=== PATIENT | female | born 1995 | race Caucasian/White ===

== ENCOUNTER 2016-08-11 13:33 | Emergency (ER) | payer BC ==
[2016-08-11] MEDS ORDERED: Sodium Chloride 0.9% 1,000 ML IV ONE (14:25)
[2016-08-11] MEDS ORDERED: Sodium Chloride 0.9% 10 ML Syringe FLUSH PRN (14:25)
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
[2016-08-11] MEDS ORDERED: Ondansetron 4 MG/2 ML SDV IVPUSH ONE (15:10)
[2016-08-11] MEDS ORDERED: Ketorolac 30 MG/ML SDV IVPUSH ONE (15:45)
[2016-08-11 16:57] VITALS: BP 120/82
== END 2016-08-11 16:45 | disposition home or self-care (01) ==
LOC: JD.ED 13:33
DX: J10.1 Influenza due to other identified influenza virus with other respiratory manifestations (principal)
CPT/HCPCS: 36415; 80053; 81001; 85025; 86140; 86308; 87081; 87430; 87804; 96361; 96374; 96375; 99284; J1885; J2405; J7040; J7050

== ENCOUNTER 2017-03-30 09:59 | Emergency (ER) | payer BC ==
[2017-03-30 10:12] VITALS: BP 124/77
[2017-03-30] MEDS ORDERED: Sodium Chloride 0.9% 10 ML Syringe FLUSH PRN (10:25)
[2017-03-30] MEDS ORDERED: Ondansetron 4 MG/2 ML SDV IVPUSH ONE (10:25)
[2017-03-30] MEDS ORDERED: Levofloxacin/Dextrose 5%-Water 500 MG in Premix Bag 1 BAG IV ONE (10:26)
[2017-03-30] MEDS ORDERED: HYDROmorphone 0.5 MG/0.5 ML Syringe IVPUSH ONE ×2 (10:26→11:36)
[2017-03-30] MEDS ORDERED: Sodium Chloride 0.9% 1,000 ML IV SCH (10:30)
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
--- NOTE | 2017-03-30 11:38 | CT ---
CT abdomen and pelvis Technique: Multiple axial sections were obtained from above the dome of the diaphragm inferiorly through the pubic symphysis. Intravenous and oral contrast not utilized. Study has been performed as a ureteral stone protocol. Findings: Kidneys show no abnormal calcifications. No hydronephrosis is seen. No abnormal calcifications are seen along the course of the ureters. Visualized lung bases shows nothing acute. Noncontrast appearance of the liver and spleen appear within normal limits. Adrenal glands show no nodule. Pancreas shows no discrete abnormality. Gallbladder shows no calcified gallstones. Aorta shows no aneurysmal dilatation. No retroperitoneal adenopathy is seen. Appendix is seen which appears normal. No pelvic mass or adenopathy is seen. No free fluid or inflammatory change is seen. Mild increased stool is seen throughout the colon. Bone window settings were reviewed which appears within normal limits for the patient's age. Impression: 1. Mild increased stool throughout the colon. 2. No renal calculi, ureteral dilatation or ureteral stone is seen. 3. Other portions of the noncontrast CT study of the abdomen and pelvis performed as a ureteral stone protocol appears within normal limits. Diagnostic code #2
== END 2017-03-30 12:35 | disposition home or self-care (01) ==
LOC: JD.ED 09:59
DX: N39.0 Urinary tract infection, site not specified (principal); F17.210 Nicotine dependence, cigarettes, uncomplicated
CPT/HCPCS: 36415; 74176; 80053; 81001; 83690; 84703; 85025; 87086; 96361; 96365; 96375; 96376; 99284; J1170; J1956; J2405; J7040; J7050

== ENCOUNTER 2018-01-16 19:52 | Emergency (ER) | payer BC ==
[2018-01-16 20:06] VITALS: BP 126/77
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
[2018-01-16] MEDS ORDERED: Sodium Chloride 0.9% 10 ML Syringe FLUSH PRN (21:49)
--- NOTE | 2018-01-17 06:41 | CR ---
Chest: Two views of the chest were obtained. Comparison: No prior chest imaging. Findings: Heart size and mediastinum are normal. Lungs are clear. Bony structures are unremarkable for the patient's age. Impression: 1. Nothing acute is seen on two-view chest x-ray. Diagnostic code #1
--- NOTE | 2018-01-17 06:51 | CR ---
Abdomen: Supine view of the abdomen was obtained. No prior abdominal x-ray. Prior noncontrast CT abdomen and pelvis exam of 03/30/17 is available. Bowel gas pattern appears normal. No abnormal calcifications or soft tissue abnormality is seen. Bony structures are unremarkable. Impression: 1. Unremarkable supine abdominal x-ray. Diagnostic code #1
--- NOTE | 2018-01-17 06:51 | CT ---
CT chest Technique: Multiple axial sections through the chest were obtained. Intravenous contrast was utilized. Study has been performed as a pulmonary angiogram protocol. Findings: Pulmonary arteries are well-opacified. No filling defects are seen to indicate pulmonary embolism. Mediastinum and hilar regions show no adenopathy or mass. No pericardial thickening is seen. Small portion of the visualized upper abdominal structures are within normal limits. Lungs are clear without acute parenchymal change. Bone window settings were reviewed which show no acute osseous finding. Impression: 1. No findings of pulmonary embolism. 2. Other portions of the CT exam of the chest appear within normal limits. Diagnostic code #1 I agree with preliminary report issued by [employer] ([employer] preliminary report dictated on 01/17/18, 12:25 AM Central Time)
== END 2018-01-16 23:49 | disposition home or self-care (01) ==
LOC: JD.ED 19:52
DX: K59.00 Constipation, unspecified (principal); R11.2 Nausea with vomiting, unspecified; F17.210 Nicotine dependence, cigarettes, uncomplicated
CPT/HCPCS: 36415; 71046; 71275; 74018; 80053; 81001; 83690; 85025; 85379; 86140; 99284; J7050

== ENCOUNTER 2019-08-20 21:17 | Emergency (ER) | payer BC ==
[2019-08-20 21:30] VITALS: BP 135/89; PULSE 109
[2019-08-20] MEDS ORDERED: Sodium Chloride 0.9% 10 ML Syringe FLUSH PRN (21:42)
[2019-08-20] MEDS ORDERED: Ketorolac 30 MG/ML SDV IVPUSH ONE (21:43)
[2019-08-20] MEDS ORDERED: Sodium Chloride 0.9% 1,000 ML IV SCH (21:45)
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
[2019-08-20] MEDS ORDERED: Ondansetron 4 MG/2 ML SDV IVPUSH ONE (22:15)
[2019-08-20] MEDS ORDERED: Levofloxacin/Dextrose 5%-Water 750 MG in Premix Bag 1 BAG IV ONE (22:24)
[2019-08-20] MEDS ORDERED: HYDROmorphone 0.5 MG/0.5 ML Syringe IVPUSH ONE (22:41)
[2019-08-20] MEDS ORDERED: Acetaminophen/HYDROcodone 325-5 MG Tab PO ONE (23:03)
--- NOTE | 2019-08-21 06:47 | CT ---
CT abdomen and pelvis Comparison: Previous CT abdomen and pelvis study of 03/30/17 performed as a renal stone protocol. Technique: Multiple axial sections were obtained from above the dome of the diaphragm inferiorly through the pubic symphysis. Intravenous contrast was utilized. No oral contrast has been given. Delayed images were also obtained through the abdomen and pelvis. Findings: Visualized lung bases show nothing acute. Liver contains no focal parenchymal abnormality. Spleen appears within normal limits. Adrenal glands show no nodule. Pancreas shows no focal parenchymal abnormality. Kidneys show symmetric contrast enhancement without hydronephrosis or mass. Aorta shows no aneurysm. No retroperitoneal adenopathy is appreciated. No mesenteric abnormalities are identified. Appendix is seen which is normal in size. No pelvic mass or adenopathy is appreciated. Pelvic varicosities are present. No free fluid or inflammatory change is appreciated. Bone window settings were reviewed which appear within normal limits for the patient's age. Impression: 1. Pelvic varicosities. 2. Nothing acute is appreciated on CT study of the abdomen and pelvis. Diagnostic code #2 This report was dictated in [place] Standard Time I agree with preliminary report from [facility], finalized on 08/21/19, 12:14 AM Central Time
== END 2019-08-21 00:10 | disposition home or self-care (01) ==
LOC: JD.ED 21:17
DX: N12 Tubulo-interstitial nephritis, not specified as acute or chronic (principal); F17.210 Nicotine dependence, cigarettes, uncomplicated; Z88.5 Allergy status to narcotic agent
CPT/HCPCS: 36415; 74177; 80053; 81001; 85025; 86140; 87086; 96361; 96365; 96375; 99284; A9270; J1170; J1885; J1956; J2405; J7030; 99283

== ENCOUNTER 2021-08-03 20:48 | Inpatient (IN) | payer MEDICAID ==
[2021-08-03] MEDS ORDERED: Lidocaine 1% 50 ML MDV INJECT ONE (21:48)
[2021-08-03] MEDS ORDERED: Nalbuphine 10 MG/1 ML Vial IVPUSH PRN (21:48)
[2021-08-03] MEDS ORDERED: Ondansetron 4 MG/2 ML SDV IVPUSH PRN (21:48)
[2021-08-03] MEDS ORDERED: Sodium Chloride 0.9% 10 ML Syringe FLUSH PRN (21:48)
[2021-08-03] MEDS ORDERED: Acetaminophen 325 MG Tab PO PRN (21:48)
[2021-08-03] MEDS ORDERED: Oxytocin/Lactated Ringers 10 UNIT/1,000 ML BAG IV SCH ×2 (22:00)
[2021-08-03] MEDS: Lactated Ringers 1,000 ML IV SCH ×2 (22:30→23:46)
[2021-08-03] MEDS ORDERED: Bupivacaine/fentaNYL/NS 100 ML Bag EPIDUR PRN (23:00)
[2021-08-03] MEDS ORDERED: ePHEDrine 50 MG/ML SDV IVPUSH PRN (23:00)
[2021-08-03] MEDS ORDERED: fentaNYL 100 MCG/2 ML SDV EPIDUR PRN (23:00)
[2021-08-04] MEDS ORDERED: Bupivacaine 0.25% 10 ML SDV ONE
[2021-08-04] MEDS: Lactated Ringers 1,000 ML IV SCH (03:47)
[2021-08-04] MEDS ORDERED: Benzocaine/Menthol 20%-0.5% Spray 78 GM Cannister TOP PRN (08:47)
[2021-08-04] MEDS ORDERED: Oxytocin/Lactated Ringers 10 UNIT/1,000 ML BAG IV SCH (08:47)
[2021-08-04] MEDS ORDERED: Witch Hazel Medicated Pads 40/Jar TOP PRN (08:47)
[2021-08-04] MEDS ORDERED: Magnesium Hydroxide 400 MG/5 ML Susp 30 ML Cup PO PRN (08:47)
[2021-08-04] MEDS ORDERED: Hydrocortisone Acetate 25 MG Supp RECTAL PRN (08:47)
[2021-08-04] MEDS ORDERED: Acetaminophen 325 MG Tab PO PRN (08:47)
[2021-08-04] MEDS: Ferrous Sulfate 324 MG Tab.EC PO SCH (08:58)
[2021-08-04] MEDS: Ibuprofen 600 MG Tab PO PRN ×2 (08:58→18:00)
[2021-08-04] MEDS: Docusate Sodium 100 MG Cap PO PRN (08:58)
[2021-08-04] MEDS: Prenatal Multivitamin with Calcium/Folic Acid/Iron Tab PO SCH (08:58)
[2021-08-04] MEDS ORDERED: Sodium Chloride 0.9% 10 ML Syringe FLUSH SCH (09:00)
[2021-08-05] MEDS: Docusate Sodium 100 MG Cap PO PRN (08:05)
[2021-08-05] MEDS: Ibuprofen 600 MG Tab PO PRN ×3 (08:05→22:28)
[2021-08-05] MEDS: Ferrous Sulfate 324 MG Tab.EC PO SCH (08:05)
[2021-08-05] MEDS: Prenatal Multivitamin with Calcium/Folic Acid/Iron Tab PO SCH (08:05)
[2021-08-05] MEDS ORDERED: Buprenorphine/Naloxone 8-2 MG Tab.SL SL SCH (09:00)
[2021-08-06] MEDS: Ibuprofen 600 MG Tab PO PRN (06:35)
[2021-08-06 11:12] VITALS: BP 108/60; PULSE 99
== END 2021-08-06 10:40 | disposition home or self-care (01) | DRG 807 ==
LOC: JD.OBCHECK 20:48 → JD.OB 20:57 → JD.OBCHECK 21:47 → JD.OB 21:48 → OBSVTOIN 08-04 06:55 → JD.OB 08-04 06:56
PROVIDERS: ADMIT Obstetrics & Gynecology; ATTEND Obstetrics & Gynecology
PROC: 10E0XZZ Delivery of Products of Conception, External Approach (ICD-10-PCS; principal; 2021-08-04)
PROC: 10907ZC Drainage of Amniotic Fluid, Therapeutic from Products of Conception, Via Natural or Artificial Opening (ICD-10-PCS; 2021-08-04)
PROC: 0HQ9XZZ Repair Perineum Skin, External Approach (ICD-10-PCS; 2021-08-04)
DX: O99.334 Smoking (tobacco) complicating childbirth (principal); Z37.0 Single live birth; F17.210 Nicotine dependence, cigarettes, uncomplicated; O70.0 First degree perineal laceration during delivery; Z3A.38 38 weeks gestation of pregnancy
CPT/HCPCS: 01967; 36415; 51702; 59025; 59409; 80306; 85025; 86592; A9270-GY; J2590; J3010; J3490; J7120

== ENCOUNTER 2021-12-24 10:31 | Emergency (ER) | payer MEDICAID ==
[2021-12-24 10:41] VITALS: BP 113/69; PULSE 89
[2021-12-24] MEDS ORDERED: Sodium Chloride 0.9% 1,000 ML IV SCH (11:15)
[2021-12-24] MEDS ORDERED: Iopamidol 755 Mg/ML 100 ML Bottle IVPUSH ONE (12:08)
[2021-12-24] MEDS ORDERED: Sodium Chloride 0.9% 10 ML Syringe FLUSH ONE (12:08)
[2021-12-24] MEDS ORDERED: Sodium Chloride 0.9% 100 ML IV SCH (12:15)
[2021-12-24 12:31] LABS: ESTIMATED GFR 127 mL/min (>60)
[2021-12-24] MEDS ORDERED: Ketorolac 30 MG/ML SDV IVPUSH SCH (13:15)
[2021-12-24] MEDS ORDERED: HYDROmorphone 1 MG/ML Syringe IVPUSH ONE (13:36)
[2021-12-24] MEDS ORDERED: Metoclopramide 10 MG/2 ML SDV IVPUSH ONE (13:36)
[2021-12-24] MEDS ORDERED: cefTRIAXone 2 GM in Sodium Chloride 0.9% 100 ML IV ONE (13:37)
== END 2021-12-24 15:35 | disposition home or self-care (01) ==
LOC: JD.ED 10:31
DX: L03.113 Cellulitis of right upper limb (principal); L02.413 Cutaneous abscess of right upper limb; K21.9 Gastro-esophageal reflux disease without esophagitis; Z72.0 Tobacco use; Z88.5 Allergy status to narcotic agent; Z88.8 Allergy status to other drugs, medicaments and biological substances
CPT/HCPCS: 36415; 71275; 80053; 83880; 84484; 85025; 85379; 85610; 85730; 86140; 93971; 96365; 96375; 99284; J0696; J1170; J1885; J2765; J3490; J7030; Q9967

== ENCOUNTER 2021-12-24 19:26 | Emergency (ER) | payer MEDICAID | END 2021-12-24 20:21 | disposition left against medical advice (07) | LOC: JD.ED 19:26 | DX: Z53.21 Procedure and treatment not carried out due to patient leaving prior to being seen by health care provider (principal) ==

== ENCOUNTER 2021-12-27 15:00 | Emergency (ER) | payer MEDICAID | END 2021-12-27 15:56 | disposition left against medical advice (07) | LOC: JD.ED 15:00 | DX: Z53.21 Procedure and treatment not carried out due to patient leaving prior to being seen by health care provider (principal) ==

== ENCOUNTER 2024-05-10 19:25 | Emergency (ER) | payer BC, MEDICAID ==
[2024-05-10] MEDS ORDERED: Sodium Chloride 0.9% 1,000 ML IV SCH (20:00)
[2024-05-10] MEDS: Ketorolac 30 MG/ML SDV IVPUSH ONE (20:35)
[2024-05-10] MEDS: Metoclopramide 10 MG/2 ML SDV IVPUSH ONE (20:35)
[2024-05-10] MEDS: diphenhydrAMINE 50 MG/ML SDV IVPUSH ONE (20:35)
[2024-05-10] MEDS: cefTRIAXone 2 GM, Lidocaine 1% 4.2 ML IM ONE (20:47)
[2024-05-10] MEDS: Ketorolac 60 MG/2 ML SDV IM ONE (20:48)
[2024-05-10] MEDS: Ondansetron 4 MG Tab.DIS PO ONE (20:48)
[2024-05-10 21:48] VITALS: BP 128/85; PULSE 100
== END 2024-05-10 21:48 | disposition home or self-care (01) ==
LOC: JD.ED 19:25
DX: J02.0 Streptococcal pharyngitis (principal); H66.92 Otitis media, unspecified, left ear; K21.9 Gastro-esophageal reflux disease without esophagitis; Z79.899 Other long term (current) drug therapy; Z88.8 Allergy status to other drugs, medicaments and biological substances; Z88.1 Allergy status to other antibiotic agents; Z88.5 Allergy status to narcotic agent
CPT/HCPCS: 87428; 87651; 96372; 99284; A9270; J0696; J1885; J3490

== ENCOUNTER 2025-05-04 08:04 | Emergency (ER) | payer BC ==
[2025-05-04 09:53] VITALS: BP 110/88; PULSE 70
== END 2025-05-04 09:30 | disposition home or self-care (01) ==
LOC: JD.ED 08:04
DX: K08.89 Other specified disorders of teeth and supporting structures (principal); Z88.8 Allergy status to other drugs, medicaments and biological substances; Z79.899 Other long term (current) drug therapy; Z86.16 Personal history of COVID-19
CPT/HCPCS: 64400; 99282-25